=== PATIENT | female | born 1960 | race Asian ===

== ENCOUNTER 2020-11-16 21:25 | Emergency (ER) | payer OTHER ==
[~2020-11-16] VITALS: Ht 167.6 cm; Wt 99.3 kg
[2020-11-16 21:25] VITALS: BP 166/92; TEMP 99.3
[2020-11-16 22:32] LABS: PLATELET COUNT 202 K/uL (152-353)
[2020-11-17] MEDS ORDERED: LIPITOR10 MG PO (00:44)
[2020-11-17] MEDS ORDERED: BENZ1TAB43 PO (00:46)
[2020-11-17] MEDS ORDERED: CARBAMAZEPIN200 M1 PO (00:50)
[2020-11-17] MEDS ORDERED: DIPH50IN INJ (00:53)
[2020-11-17] MEDS ORDERED: HALO50IN4 IM (00:57)
[2020-11-17] MEDS ORDERED: EUTHYROX100 MCG PO (01:02)
[2020-11-17] MEDS ORDERED: METF500T PO (01:05)
[2020-11-17] MEDS ORDERED: METO25TA4 PO (01:09)
[2020-11-17] MEDS ORDERED: MULTIVITAMI1 PO (01:11)
[2020-11-17] MEDS ORDERED: PHENYTOIN EX100 MG PO (01:13)
[2020-11-17] MEDS ORDERED: ACTOS15 MG PO (01:14)
[2020-11-17] MEDS ORDERED: POTASSIUM CL ER PO (01:20)
[2020-11-17] MEDS ORDERED: RISPERDAL3 MG PO (01:22)
[2020-11-17] MEDS ORDERED: SPIRONOLACT25 MG PO (01:23)
[2020-11-17] MEDS ORDERED: TEMA15CA19 PO (01:24)
[2020-11-17] MEDS ORDERED: GLUCAGEN HYPOKIT1 MG IM (01:29)
[2020-11-17] MEDS ORDERED: HUMULIN R100 UNIT/M SC (01:39)
[2020-11-22] MEDS ORDERED: VITAMIN D50000 UNIT PO (14:47)
[2020-11-22] MEDS ORDERED: HALO5TAB10 PO (14:47)
== END 2020-11-16 22:39 | disposition still patient (30) ==
LOC: ED 21:43
PROVIDERS: Emergency Medicine Emergency Medical Services
DX: R46.89 Other symptoms and signs involving appearance and behavior (principal); F20.89 Other schizophrenia; Z11.59 Encounter for screening for other viral diseases; Z04.6 Encounter for general psychiatric examination, requested by authority
CPT/HCPCS: 36415; 80053; 85027; 87635; 93005; 99283; U0003

== ENCOUNTER 2021-10-13 22:53 | Emergency (ER) | payer OTHER ==
[~2021-10-13] VITALS: Ht 167.6 cm; Wt 102.1 kg
[~2021-10-13 22:53] MED LIST: ACTOS15 MG PO; BENZ1TAB43 PO; CARBAMAZEPIN200 M1 PO; DIPH50IN INJ; EUTHYROX100 MCG PO; GLUCAGEN HYPOKIT1 MG IM; HALO50IN4 IM; HALO5TAB10 PO; HUMULIN R100 UNIT/M SC; LIPITOR10 MG PO; METF500T PO; METO25TA4 PO; MULTIVITAMI1 PO; PHENYTOIN EX100 MG PO; POTASSIUM CL ER PO; RISPERDAL3 MG PO; SPIRONOLACT25 MG PO; TEMA15CA19 PO; VITAMIN D50000 UNIT PO
[2021-10-13 23:00] VITALS: BP 124/65; TEMP 98.2
[2021-10-13 23:25] LABS: PLATELET COUNT 202 K/uL (152-353)
[2021-10-13 23:38] LABS: POTASSIUM 4.2 mmol/L (3.6-5.2)
[2021-10-14] MEDS ORDERED: DECADRON4 MG PO (09:07)
[2021-10-14] MEDS ORDERED: FLUPHENAZINE25 MG/ML IM (09:10)
[2021-10-14] MEDS ORDERED: TRAZ50TA36 PO (09:14)
[2021-10-14] MEDS ORDERED: ZINC220 M1 PO (09:15)
[2021-10-14] MEDS ORDERED: ELIQUIS5 MG PO (09:19)
[2021-10-14] MEDS ORDERED: ASCORBIC ACD500 MG PO (09:20)
[2021-10-14] MEDS ORDERED: DIPH25CA90 PO (09:22)
[2021-10-14] MEDS ORDERED: D 50005000 UNIT PO (09:28)
[2021-10-14] MEDS ORDERED: DOXYCYCL HYC100 M1 PO (09:29)
[2021-10-14] MEDS ORDERED: LEVE500T5 PO (09:41)
[2021-10-14] MEDS ORDERED: LITHIUM CARB300 MG PO (09:42)
[2021-10-14] MEDS ORDERED: MUCINEX DM1 TA1 PO (09:44)
[2021-10-14] MEDS ORDERED: HALO5TAB10 PO (09:46)
[2021-10-14] MEDS ORDERED: ALBUTEROL108 MCG/AC PO (09:48)
[2021-10-14] MEDS ORDERED: BENADRYL 50M50 MG/ML IM ×2 (09:50→10:07)
[2021-10-14] MEDS ORDERED: HALO5INJ3 IM ×2 (10:09→10:10)
[2021-10-14] MEDS ORDERED: MELATONIN5 M2 PO (10:11)
== END 2021-10-14 00:15 | disposition still patient (30) ==
LOC: ED 22:53
PROVIDERS: Emergency Medicine
DX: F25.8 Other schizoaffective disorders (principal); R45.1 Restlessness and agitation; E11.65 Type 2 diabetes mellitus with hyperglycemia; Z11.52 Encounter for screening for COVID-19; Z04.6 Encounter for general psychiatric examination, requested by authority
CPT/HCPCS: 36415; 80053; 85027; 87635; 93005; 99283; U0003

== ENCOUNTER 2022-11-12 18:19 | Emergency (ER) | payer OTHER ==
[~2022-11-12] VITALS: Ht 167.6 cm; Wt 95.3 kg
[2022-11-12 18:19] VITALS: BP 156/92; TEMP 98.7
[~2022-11-12 18:19] MED LIST changes: +ACET-206 PO; +ALBUTEROL108 MCG/AC PO; +ASCORBIC ACD500 MG PO; +BENADRYL 50M50 MG/ML IM; +CHOL100034 PO; +D 50005000 UNIT PO; +DECADRON4 MG PO; +DIPH25CA90 PO; +DOXYCYCL HYC100 M1 PO; +ELIQUIS5 MG PO; +FLUPHENAZINE25 MG/ML IM; +Flonase Nasal Inhale NAS; +HALO5INJ3 IM; +HYDR25CA25 PO; +LEVE500T5 PO; +LITHIUM CARB300 MG PO; +MAGN400T4 PO; +MELATONIN5 M2 PO; +MUCINEX DM1 TA1 PO; +OLAN2.5T2 PO; +TRAZ50TA36 PO; +ZINC220 M1 PO
[2022-11-12 18:54] LABS: PLATELET COUNT 203 K/uL (152-353)
[2022-11-12 19:12] LABS: POTASSIUM 4.1 mmol/L (3.6-5.2)
[2022-11-13] MEDS ORDERED: VRAYLAR3 MG PO (08:52)
[2022-11-13] MEDS ORDERED: FLONASE AL50 MCG/ACT NAS (08:57)
[2022-11-13] MEDS ORDERED: HALO50IN4 IM (09:02)
[2022-11-13] MEDS ORDERED: EUTHYROX112 MCG PO (09:04)
[2022-11-13] MEDS ORDERED: MULTIVITAMIN1 TA1 PO (09:06)
[2022-11-13] MEDS ORDERED: TRAZ50TA36 PO (09:13)
[2022-11-13] MEDS ORDERED: BENZTROPINE2 MG PO (09:16)
[2022-11-13] MEDS ORDERED: DIVALPROEX500 M1 PO (09:19)
[2022-11-13] MEDS ORDERED: MAGN400T4 PO (09:21)
[2022-11-13] MEDS ORDERED: TYLENOL325 MG PO (09:25)
[2022-11-13] MEDS ORDERED: DIPH50IN INJ (09:30)
[2022-11-13] MEDS ORDERED: HALO5INJ3 IM (09:35)
[2022-11-13] MEDS ORDERED: MILK OF MA400 MG/5 M PO (09:36)
== END 2022-11-12 21:37 | disposition still patient (30) ==
LOC: ED 18:19
PROVIDERS: Family Medicine
DX: F20.89 Other schizophrenia (principal); E11.9 Type 2 diabetes mellitus without complications; Z79.84 Long term (current) use of oral hypoglycemic drugs; Z11.52 Encounter for screening for COVID-19; Z04.6 Encounter for general psychiatric examination, requested by authority
CPT/HCPCS: 36415; 80053; 85027; 87635; 93005; 99283; U0003

== ENCOUNTER 2023-01-27 19:50 | Emergency (ER) | payer OTHER ==
[~2023-01-27] VITALS: Ht 167.6 cm; Wt 100.7 kg
[~2023-01-27 19:50] MED LIST changes: +APIX1TAB PO; +ATOR20TA2 PO; +BENZTROPINE2 MG PO; +DIVALPROEX250 MG PO; +DIVALPROEX500 M1 PO; +EUTHYROX112 MCG PO; +FLONASE AL50 MCG/ACT NAS; +HALO1TAB3 PO; +HALOPERIDOL DECANOAT IM; +LEVO0.117 PO; +MAGNSUS68 PO; +METO-837 PO; +MILK OF MA400 MG/5 M PO; +MULTTAB52 PO; +PIOG30TA PO; +TYLENOL325 MG PO; +VRAYLAR3 MG PO
[2023-01-27 20:41] LABS: PLATELET COUNT 188 K/uL (152-353)
[2023-01-27 20:52] LABS: POTASSIUM 3.9 mmol/L (3.6-5.2)
[2023-01-27 21:10] VITALS: BP 140/97; TEMP 98.1
[2023-01-27] MEDS ORDERED: DIPH25CA90 PO (21:38)
[2023-01-27] MEDS ORDERED: DIVA250T PO (21:39)
[2023-01-27] MEDS ORDERED: HALO5TAB10 PO (21:42)
[2023-01-27] MEDS ORDERED: HALOPERIDOL2 MG PO (21:42)
== END 2023-01-27 21:10 | disposition still patient (30) ==
LOC: ED 19:50
PROVIDERS: Emergency Medicine
DX: R46.2 Strange and inexplicable behavior (principal); Z02.79 Encounter for issue of other medical certificate
CPT/HCPCS: 36415; 80053; 81002; 84484; 85027; 87635; 93005; 99283; U0003